=== PATIENT | female | born 1965 | race Caucasian/White ===

== ENCOUNTER 2018-08-20 16:18 | Outpatient (REF) | payer SELFPAY ==
--- NOTE | 2018-08-20 14:50 | PAPFT_PTH ---
PATIENT: Ila Vidales LOC: [facility] U#:[id number] AGE/SX: 53/F ROOM: RE08/20/[address]: Lore Hansen : 1965 BED: DIS: 08/20/2018 SPEC #: [id number] RECD: 08/21/18 13:13 STATUS: FLAVIO REAlberto #: [id number] DELGADO: 08/20/18 14:[address]: Lore Hansen DEPT: [facility] Cytology RECD BY: Lucy Zapata Tissues: 1 - CX/ENDOCX FOR PAP SMEARS Procedures: PAP THIN PREP/UVM Screening HPV DNA PROBE Comments: [id number] (CHLAMYDIA/GC)
[2018-08-20 22:51] LABS: Cholesterol 254 mg/dL (50-200); HDL Cholesterol 59 mg/dL (40-60); LDL CHOLESTEROL 166 mg/dL (<100); TSH (W/Ref FT4) 1.61 uIU/mL (0.358-3.74); Triglyceride 139 mg/dL (30-150)
[2018-08-22 10:36] LABS: HIV-1/2 Ag & Ab Screen Negative (NEGAT)
[2018-08-22 12:25] LABS: Syphilis Serology (RPR) Negative (Negative)
[2018-08-22 14:18] LABS: Chlamydia Result Negative; GC Result Negative; Specimen Description SEE COMMENTS
== END 2018-08-20 16:38 ==
LOC: NCHCN 16:18
PROVIDERS: PCP Nurse Practitioner Family; Visit Provider Nurse Practitioner Family
DX: R61 Generalized hyperhidrosis (principal); J30.9 Allergic rhinitis, unspecified; R05 Cough; M26.69 Other specified disorders of temporomandibular joint; R03.0 Elevated blood-pressure reading, without diagnosis of hypertension; J45.40 Moderate persistent asthma, uncomplicated; Z00.00 Encounter for general adult medical examination without abnormal findings; Z11.3 Encounter for screening for infections with a predominantly sexual mode of transmission; Z11.4 Encounter for screening for human immunodeficiency virus [HIV]; Z12.4 Encounter for screening for malignant neoplasm of cervix; Z11.51 Encounter for screening for human papillomavirus (HPV)
CPT/HCPCS: 80061; 83721; 87389; 87491; 87591; 88142; 84443; 86592; 87624

== ENCOUNTER 2018-09-07 09:04 | Day surgery (SDC) | payer SELFPAY ==
[2018-09-07 10:10] VITALS: BP 127/81; PULSE 71; RESP 16; TEMP 36.6; O2SAT 100
[2018-09-07] MEDS: Lactated Ringers 1,000 ML 30 ML IV ×2 (10:33→13:20)
--- NOTE | 2018-09-07 13:00 | BOWEL_PTH ---
PATIENT: Ila Vidales LOC: [facility] U#:[id number] AGE/SX: 53/F ROOM: RE09/07/[address]: Dudley Suresh DO : 1965 BED: DIS: 09/07/2018 SPEC #: [id number] RECD: 09/07/18 17:34 STATUS: FLAVIO REQ #: [id number] DELGADO: 09/07/18 13:[address]: Dudley Suresh DEPT: Surgical Specimen RECD BY: Lucy Zapata ENTERED: 09/07/18 17:35 SP TYPE: Bowel OTHR DR: Lore Hansen Tissues: 1 - BIOPSY BOWEL Procedures: GROSS AND MICRO LEVEL 4 Comments: [id number]
--- NOTE | 2018-09-07 13:27 | W.COLOREPORT ---
Date of service: 09/07/18 Time of Service: 12:50 Colonoscopy Report Date of procedure: 09/07/18 Pre-op diagnosis general: Colorectal cancer screening Post-op diagnosis procedure note: other (Sigmoid colon polyp) Procedure: Colonoscopy to the cecum with biopsy by cold forceps Surgeon: Dudley Suresh Anesthesia proc note operative: MAC (Abran Elkins CRNA; ASA II mallampati class II) Estimated blood loss (mL): 1 Pathology: other (Sigmoid colon polyp) Complications: None Disposition: same day Indications: 53-year-old female presenting for colorectal cancer screening by colonoscopy. She has been asymptomatic, and has no family history of colorectal cancer. Procedure is been reviewed with her, and the risks of the procedure discussed at length. All her questions been answered to her satisfaction. Consents been obtained to proceed with colonoscopy. Prep: Miralax/Dulcolax (Prep Quality Good) Procedure Start Time: 12:52 Procedure End Time: 13:12 Retraction Time: 12 m Findings: In examining the colon from cecum to anus. A less than 1 cm polyp was identified in the sigmoid colon removed by cold biopsy forceps no other abnormalities were noted of the colon, rectum, or anorectal junction. Procedure Description: The patient was seen in the day surgery waiting area. Her identification was confirmed, and procedure checked. She was then brought to the procedure room. Monitoring for telemetry, blood pressure, oxygen saturation, and end tidal CO2 monitoring were applied. An appropriate time out was performed to confirm, identification, allergies, medication, procedure, was performed. Sedation was titrated for affect by the TOBIAS; Once adequate sedation was achieved, I performed a inspection of the external perineum, and a digitial rectal examination. No significant external abnormalities were noted. On digital rectal examination, there was no blood, no masses, good rectal tone. I advanced the colonoscope from the anus to the cecum under direct visualization. The cecum was identified by the ileal-cecal valve, and the appendiceal orifice. The scope was then withdrawn in circumferential manner from the cecum to the rectum. A single polyp was identified in the sigmoid colon and subsequently removed by cold biopsy forceps. The polyp was less than 1 cm in greatest diameter. The scope was then withdrawn into the rectum, and retroflexed. No abnormalities were noted of the rectum or anorectal junction. The scope was then withdrawn, terminating the procedure. There were no complications during the procedure, and the patient tolerated the procedure well. She was returned to the day surgery recovery area in good condition. Plan: We will await pathology before making further recommendations.
--- NOTE | 2018-09-07 19:02 | W.PM.DSUDISC ---
Discharge Plan Disposition Patient Disposition: HOME Condition: Good Discharge Details Reason For Visit: SCREENING Attending Provider: Dudley Suresh Primary Care Provider: Lore Hansen Home Meds and New Rx's Prescriptions: Continued albuterol sulfate [Ventolin HFA] 90 mcg/actuation HFA aerosol inhaler 2 puff IH QID PRNRF: 0 naproxen sodium [Aleve] 220 mg Capsule 220 mg PO BID PRNRF: 0 Discontinued bisacodyl [Dulcolax (bisacodyl)] 5 mg tablet,delayed release (DR/EC) 5 mg PO ONCE Qty: 4 RF: 0 polyethylene glycol 3350 17 gram/dose powder 255 g PO ONCE Qty: 255 RF: 0 Discharge Instructions Instructions: Colonoscopy (DC) Stand Alone Forms: Colonoscopy Post Instructions, Gogo Castillo (DSU) Activity:: Activity as Tolerated Diet:: As Tolerated Discharge Orders Discharge Orders: Discharge Order (Routine); Ordered 09/07/18 Ordered By: Dudley Suresh Discharge Data Discharge Date/Time-TO BE ENTERED AT DEPARTURE: 09/07/18 14:10 Discharge Comment: NO ISSUES DS: Diagnosis Discharge Diagnosis (1) Encounter for screening colonoscopy: Status: Resolved Asessment and Plan: Colonoscopy performed
== END 2018-09-07 14:10 | disposition home or self-care (01) ==
PROVIDERS: PCP Nurse Practitioner Family; Visit Provider Surgery
PROC: 0DJD8ZZ Inspection of Lower Intestinal Tract, Via Natural or Artificial Opening Endoscopic (ICD-10-PCS; CPT 45378; principal; 2018-09-07 11:00)
DX: Z12.11 Encounter for screening for malignant neoplasm of colon (principal); K63.5 Polyp of colon; F17.210 Nicotine dependence, cigarettes, uncomplicated; F10.10 Alcohol abuse, uncomplicated
CPT/HCPCS: 45380; 88305

== ENCOUNTER 2018-10-08 18:28 | Emergency (ER) | payer BC, SELFPAY ==
[2018-10-08 18:34] VITALS: BP 138/78; PULSE 95; RESP 12; TEMP 36.7; O2SAT 97
--- NOTE | 2018-10-08 18:46 | W.ED.GENAD ---
Discharge Plan Disposition Patient Disposition: HOME Condition: Good Discharge Details Chief Complaint: Orthopedic Clinical Impression: Contusion of hand, right Primary Care Provider: Lore Hansen ED Provider: Bhupinder Ramsey Home Meds and New Rx's Prescriptions: Continued albuterol sulfate [Ventolin HFA] 90 mcg/actuation HFA aerosol inhaler 2 puff IH QID PRNRF: 0 naproxen sodium [Aleve] 220 mg Capsule 220 mg PO BID PRNRF: 0 Discharge Instructions Instructions: Contusion in Adults (ED) Additional Instructions: May wear Leopoldo bandage as needed for comfort and compression. Continue your prescribed medications including naproxen. May use Tylenol if needed for ongoing discomfort. Apply ice to reduce discomfort. Return for any acute concerns Medical Decision Making 53-year-old female with blunt trauma to the right hand dorsal surface when she pulled a frozen bungee cord and it struck her with blunt force. She has reassuring vital signs, tenderness overlying the dorsum of the fourth and fifth metacarpals. Must exclude underlying bony injury and patient referred for x-ray without evidence of bony fracture. Discussed with her the use of the compression for stabilization as well as conservative management at home. She is stable for discharge HPI General Mode of arrival: ambulatory. Date/Time Provider Initiated Documentation: 10/08/18 18:41. Limitations to Documentation: no limitations. Information obtained by: patient. History of Present Illness 53 year old F presents to the emergency department with the chief complaint of Right dorsal hand pain after struck by a bungee cord, described as moderate, Quality is described as aching, and is localized to the right and upper extremity. Patient reports no radiation. Patient started experiencing this minute(s) and it has been constant. No relieving factors improve symptom(s), No exacerbating factors reported . Patient notes no other symptoms.. Patient did receive the following treatments prior to arrival, none Related Data Home Medications Medication Instructions Recorded Confirmed albuterol sulfate HFA 90 2 puff IH QID PRN 06/28/18 10/08/18 mcg/actuation aerosol inhaler naproxen sodium [Aleve] 220 mg PO BID PRN 08/31/18 10/08/18 Allergies Allergy/AdvReac Type Severity Reaction Status Date / Time acetaminophen [From Wygesic] Allergy Intermediate Verified 10/08/18 18:38 erythromycin base Allergy Intermediate Verified 10/08/18 18:38 propoxyphene [From Wygesic] Allergy Intermediate Verified 10/08/18 18:38 General Stated Complaint: Orthopedic ILIANA: 5 Review of Systems Review of Systems No numbness, tingling, weakness. For systems reviewed and otherwise neg [facility] Medical History Asthma (Chronic) TMJ (temporomandibular joint disorder) (Chronic) Chronic pain of both ears (Chronic) Alcohol abuse (Chronic) Prehypertension (Chronic) Tobacco abuse (Chronic) Surgical History H/O colonoscopy (Resolved 09/07/18) Social History Smoking/Tobacco Use Status: Current every day alcohol intake: current alcohol intake frequency: a few times a week Alcohol type: beer Exam Narrative Exam Narrative: GEN: awake, alert, oriented 3. Pleasant, well groomed, interactive. HEAD: Normocephalic, atraumatic ENT: Mucous membranes moist, oropharynx unremarkable, External ear exam unremarkable EXT: Full ROM, no edema, no rash. Rest of the right hand with small area of tenderness and slight ecchymosis overlying the fourth and fifth toe. Neuro: Grossly normal neurologic exam, conversant, interactive. Psych: Speech fluent, thoughts congruent, affect normal Course Vital Signs Temperature 36.7 C 10/08/18 18:34 Pulse 95 H 10/08/18 18:34 Respiratory Rate 12 10/08/18 18:34 Blood Pressure 138/78 10/08/18 18:34 Pulse Oximetry 97 10/08/18 18:34 Temperature 36.7 C 10/08/18 18:34 Temperature Source Temporal Artery Scan 10/08/18 18:34 Pulse 95 H 10/08/18 18:34 Respiratory Rate 12 10/08/18 18:34 Respiratory Effort Non-Labored 10/08/18 18:36 Blood Pressure 138/78 10/08/18 18:34 Blood Pressure Position Sitting 10/08/18 18:34 Pulse Oximetry 97 10/08/18 18:34 Oxygen Delivery Method Room Air 10/08/18 18:34 Oxygen Flow Rate 0 10/08/18 18:34 Pain Level 6 10/08/18 18:39
--- NOTE | 2018-10-08 19:15 | DI.RAD_ITS ---
SYMPTOM/DIAGNOSIS: DORSAL PAIN AFTER BLUNT TRAUMA RIGHT HAND: No fracture or dislocation is seen. IMPRESSION: Negative right hand.
--- NOTE | 2018-10-08 19:35 | DI.VRAD_ITS ---
EXAM: XR Right Hand Complete, 3 or more Views EXAM DATE/TIME: 10/08/2018 6:47 PM CLINICAL HISTORY: 53 years old, female; Pain; Hand; Right; Patient HX: Bungee cord hit hand between 4th and 5th metacarpal; Additional info: Pain in hand. No wrist pain TECHNIQUE: XR Right hand 3 or more views. COMPARISON: No relevant prior studies available. FINDINGS: Bones/joints: No acute fracture or subluxation. Soft tissues: Normal. IMPRESSION: No acute bony pathology. Dictated and Authenticated by: Christy Archuleta MD. Ordering:GISEL Reo MD
== END 2018-10-08 19:57 | disposition home or self-care (01) ==
PROVIDERS: Emergency Provider Emergency Medicine; PCP Nurse Practitioner Family
DX: S60.221A Contusion of right hand, initial encounter (principal); W22.8XXA Striking against or struck by other objects, initial encounter
CPT/HCPCS: 99282; 73130

== ENCOUNTER 2018-11-18 08:52 | Emergency (ER) | payer BC, SELFPAY ==
[2018-11-18 09:04] VITALS: BP 148/88; PULSE 80; RESP 18; TEMP 36.7; O2SAT 98
--- NOTE | 2018-11-18 10:26 | W.ED.GENAD ---
Discharge Plan Disposition Patient Disposition: HOME Discharge Details Chief Complaint: Sorethroat Clinical Impression: Parotid swelling Primary Care Provider: Lore Hansen ED Provider: Sushil Julien Home Meds and New Rx's Prescriptions: New amoxicillin-pot clavulanate 875-125 mg tablet 1 tab PO BID Qty: 19 RF: 0 Continued albuterol sulfate [Ventolin HFA] 90 mcg/actuation HFA aerosol inhaler 2 puff IH QID PRNRF: 0 naproxen sodium [Aleve] 220 mg Capsule 220 mg PO BID PRNRF: 0 Discharge Instructions Additional Instructions: Drinking liquids: Adults should drink about 9 to 13 cups of liquid each day. One cup is 8 ounces. Good choices of liquids for most people include water, juice, and milk. Coffee, soup, and fruit may be counted in your daily liquid amount. Keep your mouth moist: Suck on hard candy or chew sugarless gum to get your saliva flowing. Sour and tart flavors such as lemon and orange will help get saliva to flow. This will help keep your mouth moist and help push out a stone blocking your salivary duct. Rinse your mouth: Use water or mouthwash to clean out pus that may be draining into your mouth. Massage your jaw: Massage the area of your swollen gland. This may help relieve swelling and pain by pushing the pus out of the gland. Apply heat: Place a warm, moist cloth on the area. Medicines: NSAIDs help decrease swelling and pain or fever. Take naproxen as prescribed. Take antibiotic as prescribed. Be sure to complete the full course of antibiotic. Please follow-up with an research management associate as soon as possible. Call for an appointment. You may need additional diagnostic testing and treatment. Return to the ER for any worsening or new concerning symptoms. Referrals: Lore Hansen [Primary Care Provider] - Chuck Massey DO [OSTEOPATHIC DOCTOR] - Misha Mcleod MD [ [facility] STAFF PHYSICIAN] - Medical Decision Making 53-year-old female chronic smoker presents with chief complaint of right neck fullness and pain that started 2 days ago with no itchy sensation in her throat for the past 2 weeks. Consider neoplastic versus infectious etiology including deep space infection. Labs reviewed and nondiagnostic. CT of the neck with IV contrast was obtained and interpreted by radiology: IMPRESSION: Mild increased density and size of the right posterior parotid gland suggesting focal parotiditis versus infiltrating neoplasm. Plan to treat with sialogogue - sour lozenges and Augmentin. I reviewed the results with the patient advised to follow-up with ear nose and throat as soon as possible for reassessment and potential further diagnostic testing and treatment. HPI General Date/Time Provider Initiated Documentation: 11/18/18 09:58. HPI Narrative: 53-year-old female presents with chief complaint of neck pain. Patient notes pain in her right upper neck anterior lateral neck and under her jaw. Area feels swollen and tender. Pain is persisted for 2 days. No modifiers. She also notes associated scratchy sensation in her throat for the past 2 weeks. Some right ear pain. No fevers. She does note that she smoked for 20 years. No recent weight loss. Related Data Home Medications Medication Instructions Recorded Confirmed albuterol sulfate HFA 90 2 puff IH QID PRN 06/28/18 11/18/18 mcg/actuation aerosol inhaler naproxen sodium [Aleve] 220 mg PO BID PRN 08/31/18 11/18/18 amoxicillin-pot clavulanate 1 tab PO BID #19 tab 11/18/18 Previous Rx's Medication Instructions Recorded amoxicillin-pot clavulanate 1 tab PO BID #19 tab 11/18/18 Allergies Allergy/AdvReac Type Severity Reaction Status Date / Time acetaminophen [From Wygesic] Allergy Intermediate Verified 11/18/18 09:05 erythromycin base Allergy Intermediate Verified 11/18/18 09:05 propoxyphene [From Wygesic] Allergy Intermediate Verified 11/18/18 09:05 General Stated Complaint: Sorethroat ILIANA: 4 Review of Systems Constitutional Denies fever(s) and Denies headache(s) ENT Reports as per HPI, Denies headache(s) and Reports neck pain Respiratory Denies cough Gastrointestinal Denies abdominal pain Musculoskeletal Reports neck pain Integumentary/Breasts Denies rash Neurologic Denies headache(s) Hematologic/Lymphatic Denies lymphadenopathy [facility] Medical History Asthma (Chronic) TMJ (temporomandibular joint disorder) (Chronic) Chronic pain of both ears (Chronic) Alcohol abuse (Chronic) Prehypertension (Chronic) Tobacco abuse (Chronic) Surgical History H/O colonoscopy (Resolved 09/07/18) Social History Smoking and Tabacco status: Current every day alcohol intake: current alcohol intake frequency: a few times a week Alcohol type: beer Exam Const General: cooperative and no acute distress HENMT Head: normocephalic and atraumatic Ears: TM's normal bilaterally Mouth: oral mucosae normal and moist mucous membranes Throat: posterior oropharynx normal, uvula midline and other (no trismus) Eyes Conjunctivae: normal conjunctivae Sclera: normal sclerae EOM: EOM intact bilaterally Neck Neck: trachea midline, supple and anterior neck swelling (lateral right mild swelling) Resp Auscultation: clear to auscultation bilaterally, no rales, no rhonchi and no wheezes Cardio Jugular venous pressure: no JVD Rate: regular rate and not tachycardic Rhythm: regular rhythm Skin General skin exam: no rashes or lesions noted Neuro General: alert, awake, tone normal and other (no right facial weakness or numbness) Extrem General: no edema Course Vital Signs Temperature 36.7 C 11/18/18 09:04 Pulse 80 11/18/18 09:04 Respiratory Rate 18 11/18/18 09:04 Blood Pressure 148/88 H 11/18/18 09:04 Pulse Oximetry 98 11/18/18 09:04 Temperature 36.7 C 11/18/18 09:04 Temperature Source Skin 11/18/18 09:04 Pulse 80 11/18/18 09:04 Respiratory Rate 18 11/18/18 09:04 Respiratory Effort 11/18/18 09:38 Blood Pressure 148/88 H 11/18/18 09:04 Pulse Oximetry 98 11/18/18 09:04 Oxygen Delivery Method Room Air 11/18/18 09:04 Oxygen Flow Rate 0 11/18/18 09:04 Pain Level 6 11/18/18 09:04 Lab/Test Results Lab/Test Results: 11/18/18 09:07 Pharynx Streptococcus Screen (TISH) - Pending POC Strep Test-ARABELLA(Rapid) Start: 11/18/18 09:06 Freq: .Rapid Strep Test Status: Active Protocol: Document 11/18/18 09:59 JK (Rec: 11/18/18 09:59 JODIE [email or web address]) Strep test-ARABELLA(Rapid)-POC POC-Strep test-ARABELLA (Rapid) Negative POC-Strep test-ARABELLA (Rapid) Negative
[2018-11-18 10:44] LABS: Abs Immature Grans 0.02 k/cumm (0.0-0.09); Absolute Basophil Count 0.03 k/cumm (0.0-0.2); Absolute Eosinophil Count 0.18 k/cumm (0.0-0.7); Absolute Lymphocyte Count 2.18 k/cumm (1.2-3.4); Absolute Monocyte Count 0.58 k/cumm (0.11-0.7); Absolute Neutrophil Count 3.94 k/cumm (1.2-6.7); Basophils % 0.4; Eosinophils % 2.6; HCT 43.3 % (36.0-46.0); HGB 15.1 g/dL (12.0-15.5); Immature Grans % 0.3; Lymphocytes % 31.5; Mean Corp. HGB Concentration 34.9 g/dL (32.0-36.0); Mean Corpuscular Hemoglobin 32.2 pg (27.0-33.0); Mean Corpuscular Volume 92.3 fL (80-95); Mean Platelet Volume 10.8 fL (8.0-11.0); Monocytes % 8.4; Neutrophils % 56.8; Platelet Count 190 x1000/uL (130-400); RBC 4.69 m/cumm (4.00-5.20); RBC Distribution Width 12.9 % (11.7-14.6); White Blood Cell Count 6.93 k/cumm (4.4-10.8)
[2018-11-18 10:49] LABS: Anion Gap 7.4 mmol/L (3-11); BUN 8 mg/dL (7-18); CO2 28.6 mmol/L (21.0-32.0); CREATININE 0.72 mg/dL (0.55-1.02); Calcium 9.2 mg/dL (8.5-10.1); Chloride 104 mmol/L (98-107); Glucose 105 mg/dL (70-100); Potassium 4.5 mmol/L (3.5-5.1); Sodium 140 mmol/L (136-145)
[2018-11-18] MEDS: Omnipaque 350 MG/ML 100 ML BTL IJ (11:12)
[2018-11-18] MEDS: Normal Saline Flush 10 ML SYR IVP (11:13)
--- NOTE | 2018-11-18 11:13 | DI.CT_ITS ---
SYMPTOM/DIAGNOSIS: SENSATION OF FULLNESS AND PAIN AND SWELLING RT NECK NECK CT: CT scan of the neck was performed following the uneventful administration of intravenous contrast material. The visualized intracranial structures are unremarkable. The orbits and retro-orbital soft tissues are grossly unremarkable. The nasopharynx, hypopharynx, oropharynx and larynx are unremarkable. The submandibular glands are unremarkable as is the left parotid gland. There is slight increased attenuation in the right parotid gland and a question of mild enlargement relative to the left parotid gland. No definite discrete mass is appreciated. The vascular structures appear grossly unremarkable except for mild atherosclerotic change. The thyroid gland is grossly unremarkable. The lung apices show no acute abnormality. Incidental note is made of an azygous lobe which is a normal variant. No significant cervical adenopathy is appreciated. Mild degenerative changes are seen in the spine, particularly at the C 4-5 and C 5-6 levels. IMPRESSION: Question of mild increased density and size of the right parotid gland. This may represent an inflammatory or infectious process. Infiltrating neoplasm cannot be entirely excluded. Please correlate clinically.
--- NOTE | 2018-11-18 11:47 | DI.VRAD_ITS ---
EXAM: CT Neck With Contrast EXAM DATE/TIME: 11/18/2018 10:26 AM CLINICAL HISTORY: 53 years old, female; Signs and symptoms; Other: Sensation of fullness and pain right neck TECHNIQUE: Axial computed tomography images of the neck with intravenous contrast. Coronal and sagittal reformatted images were created and reviewed. CONTRAST: Contrast Material: 100 ml of Omnipaque 350; Contrast Route: IV COMPARISON: No relevant prior studies available. FINDINGS: Oropharynx: Normal. No significant tonsillar enlargement. Larynx: Normal. Normal epiglottis. Submandibular/Parotid glands: Mild increased density and size of the right posterior parotid gland suggesting focal parotiditis versus infiltrating neoplasm. Thyroid: Normal. No enlarged or calcified nodules. Lymph nodes: Normal. No lymphadenopathy. Lungs: Azygous lobe in the right lung which is a normal variant. Vasculature: Calcification of the thoracic aorta and/or great vessels consistent with atherosclerotic vessel disease. Bones/joints: Normal. No acute fracture. Soft tissues: Normal. No significant soft tissue swelling. IMPRESSION: Mild increased density and size of the right posterior parotid gland suggesting focal parotiditis versus infiltrating neoplasm. Dictated and Authenticated by: Tomy Garcia MD. Ordering:JESSI Ling MD
[2018-11-18 12:39] VITALS: BP 142/86; PULSE 84; RESP 18; TEMP 36.5; O2SAT 98
[2018-11-18] MEDS: Amoxicillin 875/Clav. 125 TAB PO (12:42)
--- NOTE | 2018-11-19 08:11 | PDOC.ERCMPRO ---
Care Management Progress Note 11/19-Dr. Loerna Julien requested assistance with an ENT referral (ENT to determine f/u date) for paro gland enlargement, consider neoplasm. Referral faxed to ENT this am.
== END 2018-11-18 12:45 | disposition home or self-care (01) ==
PROVIDERS: Emergency Provider Student in an Organized Health Care Education/Training Program; PCP Nurse Practitioner Family
DX: K11.8 Other diseases of salivary glands (principal); F17.210 Nicotine dependence, cigarettes, uncomplicated
CPT/HCPCS: 36415; 70491; 80048; 87880; 99285; 85025; 87081; 99284; J3490

== ENCOUNTER 2019-01-08 17:34 | Emergency (ER) | payer BC, SELFPAY ==
[2019-01-08 17:41] VITALS: BP 123/89; PULSE 72; RESP 16; TEMP 36.4; O2SAT 97
--- NOTE | 2019-01-08 17:51 | W.ED.GENAD ---
Discharge Plan Disposition Patient Disposition: HOME Condition: Good Discharge Details Chief Complaint: Laceration Clinical Impression: Laceration of finger Primary Care Provider: Lore Hansen ED Provider: Anabel Bonilla Home Meds and New Rx's Prescriptions: Continued albuterol sulfate [Ventolin HFA] 90 mcg/actuation HFA aerosol inhaler 2 puff IH QID PRNRF: 0 naproxen sodium [Aleve] 220 mg Capsule 220 mg PO BID PRNRF: 0 clindamycin HCl 300 mg Capsule 300 mg PO QID RF: 0 Discharge Instructions Instructions: Finger Laceration (ED) Additional Instructions: Keep wound clean, dry, covered. Monitor for signs of infection including redness, warmth, drainage, increased pain, fever/chills. If these arise please seek care urgently. Wash with running water and soap. He may keep this covered with a Band-Aid to prevent infection. If you develop any new or worsening symptoms seek care urgently once again. Otherwise follow-up with primary care as needed Referrals: Lore Hansen [Primary Care Provider] - Medical Decision Making Patient is a 33-year-old [id number] female presents today with chief complaint of laceration to left middle finger. She reports a prior to arrival she was trying to cut a plastic ring off of the bottle for her dog to play with when she slipped with a knife cutting her finger. She suffered a 2 mm laceration along the ulnar side of the finger on the proximal phalanx. No active bleeding. Patient is up-to-date on tetanus. Full range of motion, ligamentously intact, no sensory deficit. Discussed options with the patient. She reports that the knife was quite long although it does sound like a fat knife and likely wishes the tip of the blade that punctured her skin. However, as this may have been more of a puncture wound, I am hesitant to closed with adhesive and will rather cleanse the wound and apply a Band-Aid. Nursing staff clean the wound, patient I discussed wound care in depth. We discussed signs symptoms of infection when to seek care urgently once again. Patient is on clindamycin for ENT infection. All of her questions and concerns were addressed she is in agreement this plan. HPI General Mode of arrival: ambulatory. Date/Time Provider Initiated Documentation: 01/08/19 17:46. Limitations to Documentation: no limitations. Information obtained by: patient, family and RN notes reviewed. History of Present Illness 53 year old F presents to the emergency department with the chief complaint of left middle finger laceration, described as moderate, with intensity rated at 6. Quality is described as aching, and is localized to the left and upper extremity. Patient reports no radiation. Patient started experiencing this minute(s) and it has been constant. No relieving factors improve symptom(s), Patient notes no other symptoms.. Patient did receive the following treatments prior to arrival, none Related Data Home Medications Medication Instructions Recorded Confirmed albuterol sulfate HFA 90 2 puff IH QID PRN 06/28/18 01/08/19 mcg/actuation aerosol inhaler naproxen sodium [Aleve] 220 mg PO BID PRN 08/31/18 01/08/19 clindamycin HCl 300 mg PO QID 01/08/19 01/08/19 Allergies Allergy/AdvReac Type Severity Reaction Status Date / Time acetaminophen [From Wygesic] Allergy Intermediate Verified 11/18/18 09:05 erythromycin base Allergy Intermediate Verified 11/18/18 09:05 propoxyphene [From Wygesic] Allergy Intermediate Verified 11/18/18 09:05 amoxicillin [From Augmentin] Allergy Skin Rash Unverified 01/08/19 17:48 clavulanic acid Allergy Skin Rash Unverified 01/08/19 17:48 [From Augmentin] General Stated Complaint: Laceration ILIANA: 4 Review of Systems Constitutional Reports as per HPI, Denies chills and Denies fever(s) Musculoskeletal Reports as per HPI Integumentary/Breasts Reports as per HPI Neurologic Reports as per HPI, Denies sensory deficit and Denies paresthesias [facility] Medical History Asthma (Chronic) TMJ (temporomandibular joint disorder) (Chronic) Chronic pain of both ears (Chronic) Alcohol abuse (Chronic) Prehypertension (Chronic) Tobacco abuse (Chronic) Surgical History H/O colonoscopy (Resolved 09/07/18) Social History Smoking/Tobacco Use Status: Current every day Alcohol Intake: current Alcohol Intake frequency: a few times a week Alcohol type: beer Drug use: Never Do you feel safe at home: Yes Do you feel safe in your relationship?: Yes Exam Const General: cooperative, healthy appearing, comfortable, no acute distress and well developed Nutritional Appearance: average body habitus and well nourished Orientation: alert and awake Resp Effort & Inspection: normal respiratory effort, able to speak in complete sentences and no respiratory distress Cardio Rate: regular rate Rhythm: regular rhythm Neuro General: alert and awake Cognition: normal cognition Speech: speech normal Gait: normal gait Sensory Exam: no sensory deficits noted Extrem Left upper extremity: full ROM, normal capillary refill, no joint enlargement and hand Details: normal capillary refill, neuromotor exam normal, neurosensory exam normal, tendon exam normal, tenderness (around laceration), normal ROM of fingers and laceration (2mm); no unusual warmth, no ecchymosis and no crepitus Psych Appearance: grossly normal and well kempt Mental Status: mental status grossly normal Speech and Movement: speech and movement normal Course Vital Signs Temperature 36.4 C L 01/08/19 17:41 Pulse 72 01/08/19 17:41 Respiratory Rate 16 01/08/19 17:41 Blood Pressure 123/89 01/08/19 17:41 Pulse Oximetry 97 01/08/19 17:41 Temperature 36.4 C L 01/08/19 17:41 Temperature Source Temporal Artery Scan 01/08/19 17:41 Pulse 72 01/08/19 17:41 Respiratory Rate 16 01/08/19 17:41 Respiratory Effort Non-Labored 01/08/19 17:45 Blood Pressure 123/89 01/08/19 17:41 Blood Pressure Position Sitting 01/08/19 17:41 Pulse Oximetry 97 01/08/19 17:41 Oxygen Delivery Method Room Air 01/08/19 17:41 Oxygen Flow Rate 0 01/08/19 17:41 Pain Level 6 01/08/19 17:48
--- NOTE | 2019-01-08 17:59 | ED.GENADUL_ITS ---
Discharge Plan Disposition Patient Disposition: HOME Condition: Good Discharge Details Chief Complaint: Laceration Clinical Impression: Laceration of finger Primary Care Provider: Lore Hansen ED Provider: Anabel Bonilla Home Meds and New Rx's Prescriptions: Continued albuterol sulfate [Ventolin HFA] 90 mcg/actuation HFA aerosol inhaler 2 puff IH QID PRNRF: 0 naproxen sodium [Aleve] 220 mg Capsule 220 mg PO BID PRNRF: 0 clindamycin HCl 300 mg Capsule 300 mg PO QID RF: 0 Discharge Instructions Instructions: Finger Laceration (ED) Additional Instructions: Keep wound clean, dry, covered. Monitor for signs of infection including redness, warmth, drainage, increased pain, fever/chills. If these arise please seek care urgently. Wash with running water and soap. He may keep this covered with a Band-Aid to prevent infection. If you develop any new or worsening symptoms seek care urgently once again. Otherwise follow-up with primary care as needed Referrals: Lore Hansen [Primary Care Provider] - Medical Decision Making Patient is a 33-year-old [id number] female presents today with chief complaint of laceration to left middle finger. She reports a prior to arrival she was trying to cut a plastic ring off of the bottle for her dog to play with when she slipped with a knife cutting her finger. She suffered a 2 mm laceration along the ulnar side of the finger on the proximal phalanx. No active bleeding. Patient is up-to-date on tetanus. Full range of motion, ligamentously intact, no sensory deficit. Discussed options with the patient. She reports that the knife was quite long although it does sound like a fat knife and likely wishes the tip of the blade that punctured her skin. However, as this may have been more of a puncture wound, I am hesitant to closed with adhesive and will rather cleanse the wound and apply a Band-Aid. Nursing staff clean the wound, patient I discussed wound care in depth. We discussed signs symptoms of infection when to seek care urgently once again. Patient is on clindamycin for ENT infection. All of her questions and concerns were addressed she is in agreement this plan. HPI General Mode of arrival: ambulatory . Date/Time Provider Initiated Documentation: 01/08/19 17:46 . Limitations to Documentation: no limitations . Information obtained by: patient, family and RN notes reviewed . History of Present Illness 53 year old F presents to the emergency department with the chief complaint of left middle finger laceration, described as moderate, with intensity rated at 6. Quality is described as aching, and is localized to the left and upper extremity. Patient reports no radiation. Patient started experiencing this minute(s) and it has been constant. No relieving factors improve symptom(s), Patient notes no other symptoms.. Patient did receive the following treatments prior to arrival, none Related Data Home Medications Medication Instructions Recorded Confirmed albuterol sulfate HFA 90 2 puff IH QID PRN 06/28/18 01/08/19 mcg/actuation aerosol inhaler naproxen sodium [Aleve] 220 mg PO BID PRN 08/31/18 01/08/19 clindamycin HCl 300 mg PO QID 01/08/19 01/08/19 Allergies Allergy/AdvReac Type Severity Reaction Status Date / Time acetaminophen [From Wygesic] Allergy Intermediate Verified 11/18/18 09:05 erythromycin base Allergy Intermediate Verified 11/18/18 09:05 propoxyphene [From Wygesic] Allergy Intermediate Verified 11/18/18 09:05 amoxicillin [From Augmentin] Allergy Skin Rash Unverified 01/08/19 17:48 clavulanic acid Allergy Skin Rash Unverified 01/08/19 17:48 [From Augmentin] General Stated Complaint: Laceration ILIANA: 4 Review of Systems Constitutional Reports as per HPI, Denies chills and Denies fever(s) Musculoskeletal Reports as per HPI Integumentary/Breasts Reports as per HPI Neurologic Reports as per HPI, Denies sensory deficit and Denies paresthesias [facility] Medical History Asthma (Chronic) TMJ (temporomandibular joint disorder) (Chronic) Chronic pain of both ears (Chronic) Alcohol abuse (Chronic) Prehypertension (Chronic) Tobacco abuse (Chronic) Surgical History H/O colonoscopy (Resolved 09/07/18) Social History Smoking/Tobacco Use Status: Current every day Alcohol Intake: current Alcohol Intake frequency: a few times a week Alcohol type: beer Drug use: Never Do you feel safe at home: Yes Do you feel safe in your relationship?: Yes Exam Const General: cooperative, healthy appearing, comfortable, no acute distress and well developed Nutritional Appearance: average body habitus and well nourished Orientation: alert and awake Resp Effort & Inspection: normal respiratory effort, able to speak in complete sentences and no respiratory distress Cardio Rate: regular rate Rhythm: regular rhythm Neuro General: alert and awake Cognition: normal cognition Speech: speech normal Gait: normal gait Sensory Exam: no sensory deficits noted Extrem Left upper extremity: full ROM, normal capillary refill, no joint enlargement and hand Details: normal capillary refill, neuromotor exam normal, neurosensory exam normal, tendon exam normal, tenderness (around laceration), normal ROM of fingers and laceration (2mm); no unusual warmth, no ecchymosis and no crepitus Psych Appearance: grossly normal and well kempt Mental Status: mental status grossly normal Speech and Movement: speech and movement normal Course Vital Signs Temperature 36.4 C L 01/08/19 17:41 Pulse 72 01/08/19 17:41 Respiratory Rate 16 01/08/19 17:41 Blood Pressure 123/89 01/08/19 17:41 Pulse Oximetry 97 01/08/19 17:41 Temperature 36.4 C L 01/08/19 17:41 Temperature Source Temporal Artery Scan 01/08/19 17:41 Pulse 72 01/08/19 17:41 Respiratory Rate 16 01/08/19 17:41 Respiratory Effort Non-Labored 01/08/19 17:45 Blood Pressure 123/89 01/08/19 17:41 Blood Pressure Position Sitting 01/08/19 17:41 Pulse Oximetry 97 01/08/19 17:41 Oxygen Delivery Method Room Air 01/08/19 17:41 Oxygen Flow Rate 0 01/08/19 17:41 Pain Level 6 01/08/19 17:48
== END 2019-01-08 18:03 | disposition home or self-care (01) ==
PROVIDERS: Emergency Provider Physician Assistant; PCP Nurse Practitioner Family
DX: S61.213A Laceration without foreign body of left middle finger without damage to nail, initial encounter (principal); W26.0XXA Contact with knife, initial encounter
CPT/HCPCS: 99282

== ENCOUNTER 2019-02-01 09:53 | Emergency (ER) | payer BC, SELFPAY ==
[2019-02-01 09:56] VITALS: BP 97/62; PULSE 104; RESP 18; TEMP 38.8; O2SAT 99
--- NOTE | 2019-02-01 10:07 | DI.RAD_ITS ---
SYMPTOMS/DIAGNOSIS: COUGH, FEVER PA AND LATERAL CHEST: There are no prior comparison exams. The heart size is normal. An azygous lobe, an anatomic variant is seen. The lungs appear clear. No infiltrate or effusion is identified. IMPRESSION: Negative chest x-ray.
--- NOTE | 2019-02-01 10:11 | W.ED.GENAD ---
Discharge Plan Disposition Patient Disposition: HOME Condition: Good Discharge Details Chief Complaint: RespSymp Clinical Impression: Acute bronchitis Primary Care Provider: Lore Hansen ED Provider: Bhupinder Ramsey Home Meds and New Rx's Prescriptions: New cefdinir 300 mg capsule 300 mg PO Q12H 10 Days Qty: 20 RF: 0 Continued albuterol sulfate [Ventolin HFA] 90 mcg/actuation HFA aerosol inhaler 2 puff IH QID PRNRF: 0 naproxen sodium [Aleve] 220 mg Capsule 220 mg PO BID PRNRF: 0 Discontinued clindamycin HCl 300 mg Capsule 300 mg PO QID RF: 0 Discharge Instructions Instructions: Acute Bronchitis (ED) Additional Instructions: You may stop the Augmentin. Begin Cefdinir as prescribed for 10 days time. I recommend you begin an [id number] probiotic to be taken in between the doses of antibiotics. Please call the otolaryngology office for a follow-up appointment to ensure that she did not need further antibiotics for your sialadenitis. Continue to liberally hydrate and use sour lemon to speed healing. Home to rest today. Return for any acute concerns Medical Decision Making This 53-year-old female with 2 days of cough, congestion, production of sputum and fever of 38.8 today. Her review of systems is notable for treatment of right sialoadenitis for nearly 6 weeks with Augmentin which she states is caused her once daily diarrhea and as such she is only been taking 1 tablet of Augmentin per day for some weeks time. Her vital signs are notable for mild tachycardia, blood pressure 97/62 and temperature 38.8. Today's presentation is concerning for developing pneumonia. IV access established, patient given 1 L normal saline fluid bolus, ketorolac, referred for laboratory testing and chest x-ray. Diagnostics: Lactate normal. CBC reveals unremarkable white count but with ANC of 7.8. Chemistries notable for sodium of 135, discrete anion gap of 12. Patient significantly improved following fluids. Chest x-ray without evidence of focal infiltrate. I do feel that she is unable to comply with her course of Augmentin for sialoadenitis. Additionally, today's URI merits treatment with antibiotics and a third-generation cephalosporin will cover both entities, including staphylococcal species. Lab Data Lab results reviewed: Yes I reviewed the patient's lab results. Laboratory Results - last 24 hr 02/01/19 02/01/19 02/01/19 10:15 10:15 10:15 WBC 9.66 RBC 4.57 Hgb 14.4 Hct 42.2 MCV 92.3 MCH 31.5 MCHC 34.1 RDW 12.7 Plt Count 159 MPV 11.5 H Immature Gran % 0.2 Neutrophils % 80.8 Lymphocytes % 10.9 Monocytes % 7.2 Eosinophils % 0.7 Basophils % 0.2 Absolute Neutrophils 7.80 H Absolute Lymphocytes 1.05 L Absolute Monocytes 0.70 Absolute Eosinophils 0.07 Absolute Basophils 0.02 Sodium 135 L Potassium 3.8 Chloride 99 Carbon Dioxide 23.6 Anion Gap 12.4 H BUN 8 Creatinine 0.79 Estimated GFR/1.73 m2 >= 60.00 Glucose 94 Lactate 1.0 Calcium 9.0 Total Bilirubin 0.5 AST 22 ALT 40 Alkaline Phosphatase 103 Total Protein 8.2 Albumin 4.1 HPI General Mode of arrival: ambulatory. Date/Time Provider Initiated Documentation: 02/01/19 10:00. Limitations to Documentation: no limitations. Information obtained by: patient and family. History of Present Illness 53 year old F presents to the emergency department with the chief complaint of Cough, congestion, fever x2 days, described as moderate, Quality is described as dull and constant, and is localized to the chest. Patient reports no radiation. Patient started experiencing this day(s) and it has been constant. No exacerbating factors reported . Patient notes other (Associated diarrhea since being on Augmentin for 6 weeks). Patient did receive the following treatments prior to arrival, none Related Data Home Medications Medication Instructions Recorded Confirmed albuterol sulfate HFA 90 2 puff IH QID PRN 06/28/18 01/08/19 mcg/actuation aerosol inhaler naproxen sodium [Aleve] 220 mg PO BID PRN 08/31/18 01/08/19 cefdinir 300 mg PO Q12H 10 Days #20 cap 02/01/19 Previous Rx's Medication Instructions Recorded cefdinir 300 mg PO Q12H 10 Days #20 cap 02/01/19 Allergies Allergy/AdvReac Type Severity Reaction Status Date / Time acetaminophen [From Wygesic] Allergy Intermediate Verified 11/18/18 09:05 erythromycin base Allergy Intermediate Verified 11/18/18 09:05 propoxyphene [From Wygesic] Allergy Intermediate Verified 11/18/18 09:05 amoxicillin [From Augmentin] Allergy Skin Rash Unverified 01/08/19 17:48 clavulanic acid Allergy Skin Rash Unverified 01/08/19 17:48 [From Augmentin] General Stated Complaint: RespSymp ILIANA: 3 Review of Systems Review of Systems Once daily diarrhea that she attributes to Augmentin that she is cut down to once daily. Fevers and chills over 2 days time with associated cough. No vomiting. 8 systems reviewed and otherwise [facility] Medical History Asthma (Chronic) TMJ (temporomandibular joint disorder) (Chronic) Chronic pain of both ears (Chronic) Alcohol abuse (Chronic) Prehypertension (Chronic) Tobacco abuse (Chronic) Surgical History H/O colonoscopy (Resolved 09/07/18) Social History Smoking/Tobacco Use Status: Current every day Alcohol Intake: current Alcohol Intake frequency: a few times a week Alcohol type: beer Drug use: Never Do you feel safe at home: Yes Do you feel safe in your relationship?: Yes Exam Narrative Exam Narrative: GEN: awake, alert, oriented 3. Pleasant, well groomed, interactive. HEAD: Normocephalic, atraumatic ENT: Mucous membranes moist, oropharynx unremarkable, right submandibular lymphadenopathy that is mildly tender, external ear exam unremarkable EYES: PERRL, EOMI NECK: Full ROM, no menigismus CHEST/RESP: Nontender, clear to auscultation bilateral, no wheeze/rhonchi/rales CARDIOVASCULAR: Regular, borderline tachycardia, no murmur, rub parker. 2+ Rad pulse bilateral ABDOMEN: Soft, nontender, no mass. +Bowel sounds EXT: Full ROM, no edema, no rash Neuro: Grossly normal neurologic exam, conversant, interactive. Psych: Speech fluent, thoughts congruent, affect normal Course Vital Signs Temperature 38.8 C H 02/01/19 09:56 Pulse 104 H 02/01/19 09:56 Respiratory Rate 18 02/01/19 09:56 Blood Pressure 97/62 L 02/01/19 09:56 Pulse Oximetry 99 02/01/19 09:56 Temperature 38.8 C H 02/01/19 09:56 Temperature Source Skin 02/01/19 09:56 Pulse 104 H 02/01/19 09:56 Respiratory Rate 18 02/01/19 09:56 Respiratory Effort Non-Labored 02/01/19 10:01 Blood Pressure 97/62 L 02/01/19 09:56 Pulse Oximetry 99 02/01/19 09:56 Oxygen Delivery Method Room Air 02/01/19 09:56 Oxygen Flow Rate 0 02/01/19 09:56
--- NOTE | 2019-02-01 10:14 | ED.GENADUL_ITS ---
Discharge Plan Disposition Patient Disposition: HOME Condition: Good Discharge Details Chief Complaint: RespSymp Clinical Impression: Acute bronchitis Primary Care Provider: Lore Hansen ED Provider: Bhupinder Ramsey Home Meds and New Rx's Prescriptions: New cefdinir 300 mg capsule 300 mg PO Q12H 10 Days Qty: 20 RF: 0 Continued albuterol sulfate [Ventolin HFA] 90 mcg/actuation HFA aerosol inhaler 2 puff IH QID PRNRF: 0 naproxen sodium [Aleve] 220 mg Capsule 220 mg PO BID PRNRF: 0 Discontinued clindamycin HCl 300 mg Capsule 300 mg PO QID RF: 0 Discharge Instructions Instructions: Acute Bronchitis (ED) Additional Instructions: You may stop the Augmentin. Begin Cefdinir as prescribed for 10 days time. I recommend you begin an [id number] probiotic to be taken in between the doses of antibiotics. Please call the otolaryngology office for a follow-up appointment to ensure that she did not need further antibiotics for your sialadenitis. Continue to liberally hydrate and use sour lemon to speed healing. Home to rest today. Return for any acute concerns Medical Decision Making This 53-year-old female with 2 days of cough, congestion, production of sputum and fever of 38.8 today. Her review of systems is notable for treatment of right sialoadenitis for nearly 6 weeks with Augmentin which she states is caused her once daily diarrhea and as such she is only been taking 1 tablet of Augmentin per day for some weeks time. Her vital signs are notable for mild tachycardia, blood pressure 97/62 and temperature 38.8. Today's presentation is concerning for developing pneumonia. IV access established, patient given 1 L normal saline fluid bolus, ketorolac, referred for laboratory testing and chest x-ray. Diagnostics: Lactate normal. CBC reveals unremarkable white count but with ANC of 7.8. Chemistries notable for sodium of 135, discrete anion gap of 12. Patient significantly improved following fluids. Chest x-ray without evidence of focal infiltrate. I do feel that she is unable to comply with her course of Augmentin for sialoadenitis. Additionally, today's URI merits treatment with antibiotics and a third-generation cephalosporin will cover both entities, including staphylococcal species. Lab Data Lab results reviewed: Yes I reviewed the patient's lab results. Laboratory Results - last 24 hr 02/01/19 02/01/19 02/01/19 10:15 10:15 10:15 WBC 9.66 RBC 4.57 Hgb 14.4 Hct 42.2 MCV 92.3 MCH 31.5 MCHC 34.1 RDW 12.7 Plt Count 159 MPV 11.5 H Immature Gran % 0.2 Neutrophils % 80.8 Lymphocytes % 10.9 Monocytes % 7.2 Eosinophils % 0.7 Basophils % 0.2 Absolute Neutrophils 7.80 H Absolute Lymphocytes 1.05 L Absolute Monocytes 0.70 Absolute Eosinophils 0.07 Absolute Basophils 0.02 Sodium 135 L Potassium 3.8 Chloride 99 Carbon Dioxide 23.6 Anion Gap 12.4 H BUN 8 Creatinine 0.79 Estimated GFR/1.73 m2 >= 60.00 Glucose 94 Lactate 1.0 Calcium 9.0 Total Bilirubin 0.5 AST 22 ALT 40 Alkaline Phosphatase 103 Total Protein 8.2 Albumin 4.1 HPI General Mode of arrival: ambulatory . Date/Time Provider Initiated Documentation: 02/01/19 10:00 . Limitations to Documentation: no limitations . Information obtained by: patient and family . History of Present Illness 53 year old F presents to the emergency department with the chief complaint of Cough, congestion, fever x2 days, described as moderate, Quality is described as dull and constant, and is localized to the chest. Patient reports no radiation. Patient started experiencing this day(s) and it has been constant. No exacerbating factors reported . Patient notes other (Associated diarrhea since being on Augmentin for 6 weeks). Patient did receive the following treatments prior to arrival, none Related Data Home Medications Medication Instructions Recorded Confirmed albuterol sulfate HFA 90 2 puff IH QID PRN 06/28/18 01/08/19 mcg/actuation aerosol inhaler naproxen sodium [Aleve] 220 mg PO BID PRN 08/31/18 01/08/19 cefdinir 300 mg PO Q12H 10 Days #20 cap 02/01/19 Previous Rx's Medication Instructions Recorded cefdinir 300 mg PO Q12H 10 Days #20 cap 02/01/19 Allergies Allergy/AdvReac Type Severity Reaction Status Date / Time acetaminophen [From Wygesic] Allergy Intermediate Verified 11/18/18 09:05 erythromycin base Allergy Intermediate Verified 11/18/18 09:05 propoxyphene [From Wygesic] Allergy Intermediate Verified 11/18/18 09:05 amoxicillin [From Augmentin] Allergy Skin Rash Unverified 01/08/19 17:48 clavulanic acid Allergy Skin Rash Unverified 01/08/19 17:48 [From Augmentin] General Stated Complaint: RespSymp ILIANA: 3 Review of Systems Review of Systems Once daily diarrhea that she attributes to Augmentin that she is cut down to once daily. Fevers and chills over 2 days time with associated cough. No vomiting. 8 systems reviewed and otherwise [facility] Medical History Asthma (Chronic) TMJ (temporomandibular joint disorder) (Chronic) Chronic pain of both ears (Chronic) Alcohol abuse (Chronic) Prehypertension (Chronic) Tobacco abuse (Chronic) Surgical History H/O colonoscopy (Resolved 09/07/18) Social History Smoking/Tobacco Use Status: Current every day Alcohol Intake: current Alcohol Intake frequency: a few times a week Alcohol type: beer Drug use: Never Do you feel safe at home: Yes Do you feel safe in your relationship?: Yes Exam Narrative Exam Narrative: GEN: awake, alert, oriented 3. Pleasant, well groomed, interactive. HEAD: Normocephalic, atraumatic ENT: Mucous membranes moist, oropharynx unremarkable, right submandibular lymphadenopathy that is mildly tender, external ear exam unremarkable EYES: PERRL, EOMI NECK: Full ROM, no menigismus CHEST/RESP: Nontender, clear to auscultation bilateral, no wheeze/rhonchi/rales CARDIOVASCULAR: Regular, borderline tachycardia, no murmur, rub parker. 2+ Rad pulse bilateral ABDOMEN: Soft, nontender, no mass. +Bowel sounds EXT: Full ROM, no edema, no rash Neuro: Grossly normal neurologic exam, conversant, interactive. Psych: Speech fluent, thoughts congruent, affect normal Course Vital Signs Temperature 38.8 C H 02/01/19 09:56 Pulse 104 H 02/01/19 09:56 Respiratory Rate 18 02/01/19 09:56 Blood Pressure 97/62 L 02/01/19 09:56 Pulse Oximetry 99 02/01/19 09:56 Temperature 38.8 C H 02/01/19 09:56 Temperature Source Skin 02/01/19 09:56 Pulse 104 H 02/01/19 09:56 Respiratory Rate 18 02/01/19 09:56 Respiratory Effort Non-Labored 02/01/19 10:01 Blood Pressure 97/62 L 02/01/19 09:56 Pulse Oximetry 99 02/01/19 09:56 Oxygen Delivery Method Room Air 02/01/19 09:56 Oxygen Flow Rate 0 02/01/19 09:56
[2019-02-01] MEDS: Normal Saline 1,000 ML 1000 ML IV (10:25)
[2019-02-01] MEDS: Ketorolac 15 MG/ML VIAL IVP (10:25)
[2019-02-01 10:43] LABS: ALT 40 U/L (12-78); AST 22 U/L (15-37); Albumin 4.1 g/dL (3.4-5.0); Alkaline Phosphatase 103 U/L (46-116); Anion Gap 12.4 mmol/L (3-11); BUN 8 mg/dL (7-18); Bilirubin, Total 0.5 mg/dL (0.2-1.0); CO2 23.6 mmol/L (21.0-32.0); CREATININE 0.79 mg/dL (0.55-1.02); Chloride 99 mmol/L (98-107); Glucose 94 mg/dL (70-100); Potassium 3.8 mmol/L (3.5-5.1); Sodium 135 mmol/L (136-145); Total Protein 8.2 g/dL (6.4-8.2)
[2019-02-01 10:50] LABS: Abs Immature Grans 0.02 k/cumm (0.0-0.09); Absolute Basophil Count 0.02 k/cumm (0.0-0.2); Absolute Eosinophil Count 0.07 k/cumm (0.0-0.7); Absolute Lymphocyte Count 1.05 k/cumm (1.2-3.4); Basophils % 0.2; Eosinophils % 0.7; HCT 42.2 % (36.0-46.0); HGB 14.4 g/dL (12.0-15.5); Immature Grans % 0.2; Lymphocytes % 10.9; Mean Corp. HGB Concentration 34.1 g/dL (32.0-36.0); Mean Corpuscular Hemoglobin 31.5 pg (27.0-33.0); Mean Corpuscular Volume 92.3 fL (80-95); Mean Platelet Volume 11.5 fL (8.0-11.0); Monocytes % 7.2; Neutrophils % 80.8; Platelet Count 159 x1000/uL (130-400); RBC 4.57 m/cumm (4.00-5.20); RBC Distribution Width 12.7 % (11.7-14.6); White Blood Cell Count 9.66 k/cumm (4.4-10.8)
[2019-02-01 11:22] VITALS: TEMP 38.1
[2019-02-01 11:50] VITALS: BP 97/62; PULSE 104; RESP 18; TEMP 38.1; O2SAT 99
== END 2019-02-01 11:45 | disposition home or self-care (01) ==
PROVIDERS: Emergency Provider Emergency Medicine; PCP Nurse Practitioner Family
DX: J44.0 Chronic obstructive pulmonary disease with (acute) lower respiratory infection (principal); J20.9 Acute bronchitis, unspecified; J45.909 Unspecified asthma, uncomplicated; F17.210 Nicotine dependence, cigarettes, uncomplicated
CPT/HCPCS: 36415; 80053; 96361; 96374; 99284; 71046; 83605; 85025; J1885

== ENCOUNTER 2019-07-18 12:11 | Outpatient (REF) | payer BC, SELFPAY | END 2019-07-18 12:31 | LOC: NCHCN 12:11 | PROVIDERS: PCP Nurse Practitioner Family; Visit Provider Nurse Practitioner Family | DX: B80 Enterobiasis (principal) | CPT/HCPCS: 87177 ==

== ENCOUNTER 2019-08-12 10:37 | Outpatient (REF) | payer BC, SELFPAY | END 2019-08-12 10:57 | LOC: NCHCN 10:37 | PROVIDERS: PCP Nurse Practitioner Family; Visit Provider Nurse Practitioner Family | DX: B80 Enterobiasis (principal) | CPT/HCPCS: 87177 ==

== ENCOUNTER 2019-09-05 00:20 | Outpatient (CLI) | payer BC, SELFPAY ==
--- NOTE | 2019-09-05 13:52 | DI.MRI_ITS ---
EXAM: MR ORBIT FACIAL NECK WO/W CLINICAL HISTORY: SIALADENITIS, FULLNESS OF NECK, LESION OF PAROTID GLAND. TECHNIQUE: Multiplanar multisequence MRI was performed. COMPARISON: No exams were available for comparison FINDINGS: Right parotid gland appears decreased in size relative to the left parotid gland. On the T2 weighted images there is mild intense signal. Following contrast administration there is mild increased enha ncement of the right parotid gland. No mass is identified. No suspicious cystic lesions are seen. No ductal dilatation. Left parotid gland is unremarkable. No significant cervical adenopathy is appreciated. Bones: Unremarkable. Soft tissues: Unremarkable. Visualized submandibular glands are unremarkable. IMPRESSION: Right parotid gland shows mild T2 hyperintensity and mild enhancement following contrast administrati on. An infectious or inflammatory process should be considered. No evidence of a parotid mass is se en.
[2019-09-05 14:01] LABS: BUN 17 mg/dL (7-18); CREATININE 1.06 mg/dL (0.55-1.02); Estimated GFR 54.44 (mL/min/1.73m2)
[2019-09-05] MEDS: Normal Saline Flush 10 ML SYR IVP (14:18)
[2019-09-05] MEDS: Gadoterate meglumine 20 ML VIAL 16 ML IVP (14:19)
== END 2019-09-05 00:40 ==
PROVIDERS: PCP Nurse Practitioner Family; Visit Provider Physician Assistant
DX: K11.8 Other diseases of salivary glands (principal); K11.20 Sialoadenitis, unspecified; R22.1 Localized swelling, mass and lump, neck; F17.200 Nicotine dependence, unspecified, uncomplicated; F10.10 Alcohol abuse, uncomplicated
CPT/HCPCS: 84520; 70543; 82565

== ENCOUNTER 2021-09-21 18:57 | Outpatient (REF) | payer BC, SELFPAY ==
[2021-09-21 16:14] LABS: Calculated LDL 141 mg/dL (<100); Cholesterol 263 mg/dL (<200); HDL Cholesterol 57 mg/dL (40-60); Triglyceride 328 mg/dL (<150)
[2021-09-22 11:10] LABS: Hepatitis C Ab w Rflx HCV PCR Negative (Negative)
== END 2021-09-21 18:58 | disposition home or self-care (01) ==
LOC: NCHCN 18:57
PROVIDERS: PCP Nurse Practitioner Family; Visit Provider Nurse Practitioner Family
DX: Z12.2 Encounter for screening for malignant neoplasm of respiratory organs (principal); F17.210 Nicotine dependence, cigarettes, uncomplicated; Z11.59 Encounter for screening for other viral diseases; E78.5 Hyperlipidemia, unspecified; E66.9 Obesity, unspecified
CPT/HCPCS: 80061; 86803

== ENCOUNTER 2021-09-28 07:44 | Outpatient (CLI) | payer BC, SELFPAY ==
--- NOTE | 2021-09-28 12:37 | W.PFT ---
Date of service: 09/28/21 Time of Service: 10:02 Pulmonary Function Test Result Requesting Provider Lore Hansen Indications: Dyspnea on exertion Interpretation Spirometry: There is moderate airflow limitation. Lung Volumes: Lung volumes are normal. Diffusion Capacity: The diffusion is reduced Airway Pressure: Airways resistance in normal. Impression Moderatre airflow obstruction with a reduced diffusion. In the correct clinical context this may represent COPD with emphysema. Clinical Correlation therefore is recommended.
[2021-09-28] MEDS: Inhaler, Assist Device 1 EACH MC (13:21)
[2021-09-28] MEDS: Albuterol HFA 18 GM 200 PUFF INH IH (13:21)
[2021-09-28] MEDS: Methacholine 100 MG VIAL IH (13:21)
--- NOTE | 2021-09-28 14:38 | W.PFT ---
Date of service: 09/28/21 Time of Service: 10:02 Pulmonary Function Test Result Requesting Provider Lore Hansen Indications: Dyspnea Interpretation Spirometry: There is baseline moderate airflow limitation. There was a 23% decrease in FEV1% with administration of 8 mg/mL methacholine. Impression Baseline moderate airflow obstruction. Positive methacholine challenge test. Clinical Correlation therefore is recommended.
== END 2021-09-28 07:45 | disposition home or self-care (01) ==
LOC: RT 07:54
PROVIDERS: PCP Nurse Practitioner Family; Visit Provider Nurse Practitioner Family
DX: J45.40 Moderate persistent asthma, uncomplicated (principal); R06.09 Other forms of dyspnea; R05.8 Other specified cough; F17.210 Nicotine dependence, cigarettes, uncomplicated; R94.2 Abnormal results of pulmonary function studies
CPT/HCPCS: 94060; 94070; 94726; 94729; 94010; J7674

== ENCOUNTER 2022-03-10 15:31 | Outpatient (CLI) | payer BC, SELFPAY ==
--- NOTE | 2022-03-10 15:00 | DI.RAD_ITS ---
Exam(s) XR HAND RT COMPLETE EXAM: XR HAND RT COMPLETE CLINICAL HISTORY: RIGHT HAND PAIN. TECHNIQUE: 2D digital imaging was performed of the right hand. Three images were obtained. AP, late ral and oblique views were obtained. COMPARISON: CR XR hand RT complete from 10/08/2018 FINDINGS: BONES: No acute fracture is present. No bony destructive lesion is seen. There is mild deformity is s een at the head of the proximal phalanx of the thumb which may be secondary to prior trauma. JOINTS: No dislocation present. Small osteophytes are seen at the DIP joint of the middle finger. Th e joint spaces are otherwise well maintained. SOFT TISSUE: Normal. IMPRESSION: Mild degenerative changes of the right hand. DATA REPOSITORY: RADIATION DOSE DELIVERED:
== END 2022-03-10 15:32 | disposition home or self-care (01) ==
LOC: DIORS 15:32
PROVIDERS: PCP Nurse Practitioner Family; Referring Provider Nurse Practitioner Family; Visit Provider Physician Assistant
DX: M19.041 Primary osteoarthritis, right hand (principal)
CPT/HCPCS: 73130

== ENCOUNTER 2022-10-25 15:42 | Outpatient (REF) | payer BC, SELFPAY ==
[2022-10-25 14:42] LABS: Anion Gap 10.7 mmol/L (3-11); BUN 8 mg/dL (7-18); CO2 22.3 mmol/L (21.0-32.0); CREATININE 0.7 mg/dL (0.55-1.02); Calcium 8.6 mg/dL (8.5-10.1); Chloride 108 mmol/L (98-107); Estimated GFR 102.07 (mL/min/1.73m2); Glucose 110 mg/dL (74-106); Sodium 141 mmol/L (136-145)
== END 2022-10-25 15:43 | disposition home or self-care (01) ==
LOC: NCHCN 15:42
PROVIDERS: PCP Nurse Practitioner Family; Visit Provider Nurse Practitioner Family
DX: E78.5 Hyperlipidemia, unspecified (principal); R03.0 Elevated blood-pressure reading, without diagnosis of hypertension; F10.10 Alcohol abuse, uncomplicated; F17.210 Nicotine dependence, cigarettes, uncomplicated; E66.8 Other obesity
CPT/HCPCS: 80048

== ENCOUNTER 2023-10-10 09:56 | Outpatient (REF) | payer OTHER, SELFPAY ==
[2023-10-10 15:09] LABS: ALT 54 U/L (14-59); AST 26 U/L (15-37); Alkaline Phosphatase 81 U/L (46-116); Anion Gap 10.6 mmol/L (3-11); BUN 8 mg/dL (7-18); Bilirubin, Total 0.4 mg/dL (0.2-1.0); CO2 25.4 mmol/L (21.0-32.0); CREATININE 0.8 mg/dL (0.55-1.02); Calcium 9.1 mg/dL (8.5-10.1); Calculated LDL 173 mg/dL (<100); Chloride 105 mmol/L (98-107); Cholesterol 268 mg/dL (<200); Estimated GFR 86.42 (mL/min/1.73m2); Glucose 96 mg/dL (74-106); HDL Cholesterol 55 mg/dL (40-60); Potassium 4.4 mmol/L (3.5-5.1); Sodium 141 mmol/L (136-145); Total Protein 7.3 g/dL (6.4-8.2); Triglyceride 201 mg/dL (<150)
== END 2023-10-10 09:57 | disposition home or self-care (01) ==
LOC: NCHCN 09:56
PROVIDERS: PCP Nurse Practitioner Family; Visit Provider Nurse Practitioner Family
DX: I10 Essential (primary) hypertension (principal)
CPT/HCPCS: 80053; 80061

== ENCOUNTER 2024-12-02 15:28 | Outpatient (REF) | payer OTHER, SELFPAY ==
[2024-12-02 22:14] LABS: ALT 58 U/L (14-59); AST 33 U/L (15-37); Albumin 3.7 g/dL (3.4-5.0); Alkaline Phosphatase 94 U/L (46-116); Anion Gap 11.1 mmol/L (3-11); BUN 7 mg/dL (7-18); Bilirubin, Total 0.3 mg/dL (0.2-1.0); CO2 23.9 mmol/L (21.0-32.0); CREATININE 0.7 mg/dL (0.55-1.02); Calcium 8.8 mg/dL (8.5-10.1); Calculated LDL 149 mg/dL (<100); Chloride 107 mmol/L (98-107); Cholesterol 242 mg/dL (<200); Estimated GFR 100.81 (mL/min/1.73m2); Glucose 111 mg/dL (74-106); HDL Cholesterol 48 mg/dL (>or=50); Potassium 4.1 mmol/L (3.5-5.1); Sodium 142 mmol/L (136-145); Total Protein 6.9 g/dL (6.4-8.2); Triglyceride 229 mg/dL (<150)
== END 2024-12-02 15:29 | disposition home or self-care (01) ==
LOC: NCHCN 15:28
PROVIDERS: PCP Nurse Practitioner Family; Visit Provider Nurse Practitioner Family
DX: E78.5 Hyperlipidemia, unspecified (principal)
CPT/HCPCS: 80053; 80061